=== PATIENT | female | born 1995 | race Caucasian/White ===

== ENCOUNTER 2024-03-04 22:53 | Emergency (ER) | payer BC, OTHER ==
[~2024-03-04] VITALS: Ht 162.6 cm; Wt 63.5 kg
[2024-03-04 23:03] VITALS: BP 122/61; PULSE 81; RESP 18; TEMP 98; O2SAT 100
[2024-03-05 00:01] LABS: APPEARANCE,URINE CLEAR (CLEAR); COLOR,URINE YELLOW (YELLOW)
[2024-03-05 00:02] LABS: BILIRUBIN,URINE NEGATIVE (NEGATIVE); UGLUCOSE NEGATIVE (NEGATIVE)
[2024-03-05 00:04] LABS: BLOOD, URINE NEGATIVE (NEGATIVE); PROTEIN,URINE TRACE (NEGATIVE); UROBILINOGEN,URINE 0.2 EU/dL (0.2 - 1)
[2024-03-05 00:05] LABS: LEUKOCYTE ESTERASE ,URINE NEGATIVE (NEGATIVE); NITRITE, URINE NEGATIVE (NEGATIVE)
[2024-03-05 01:15] VITALS: BP 122/61; PULSE 81; RESP 18; TEMP 98; O2SAT 100
== END 2024-03-05 01:15 | disposition home or self-care (01) ==
LOC: MED 22:53
DX: R10.30 Lower abdominal pain, unspecified (principal); Z88.0 Allergy status to penicillin; Z79.899 Other long term (current) drug therapy; Z98.890 Other specified postprocedural states
CPT/HCPCS: 81003; 81025; 99283